=== PATIENT | female | born 1965 | race Hispanic/Latino ===

== ENCOUNTER 2019-03-13 18:49 | Emergency (ER) | payer MEDICAID ==
--- NOTE | 2019-03-13 19:29 | Event Note ---
ED Screening Note Date of service: 03/13/19 Time: 19:25 ED Screening Note: This is a 53 y.o. F. that presents to the ER with a ring stuck on left 3rd finger for 3 days. Patient reports poison vic rash and swelling to hands. Patient using benadryl and calamine with no improvement of symptoms. Patient went to Urgent Care and given steroids and antibiotics. This initial assessment/diagnostic orders/clinical plan/treatment(s) is/are subject to change based on patients health status, clinical progression and re- assessment by fellow clinical providers in the ED. Further treatment and workup at subsequent clinical providers discretion. Patient/guardian urged not to elope from the ED as their condition may be serious if not clinically assessed and managed. Initial orders include:
[2019-03-13] MEDS ORDERED: NORCO 5/325 PO ONE (20:26)
[2019-03-13] MEDS ORDERED: ANTIBIOTIC OINT TP ONE (20:27)
--- NOTE | 2019-03-13 20:32 | Emergency Department Report ---
HPI - General Chief Complaint: Extremity Injury, Upper Time Seen by Provider: 03/13/19 19:24 - HPI HPI: Room 6 The patient is a 53-year-old female presenting with a chief complaint of ring stuck on finger. The patient states she got exposed to poison vic across 4-5 days ago and patient states she developed swelling of her hands 2 days ago which made it difficult to get her ring off. Patient complained of pain initially went to urgent care facility for evaluation. The patient was sent to the ED to have the ring cut off. The ring was cut off by staff prior to my evaluation. Patient now just complains of soreness where the ring was. Location: [See above] Duration: [See above] Quality: [See above] Severity: [See above] Modifying factors: [see above] Context: [see above] Mode of transportation: [not driving] ED Past Medical Hx - Past Medical History Previous Medical History?: No - Surgical History Past Surgical History?: No - Family History Family history: no significant - Social History Smoking Status: Heavy Tobacco Smoker Substance Use Type: Alcohol (occasional) - Medications Home Medications: Home Medications Medication Instructions Recorded Confirmed Last Taken Type HYDROcodone/APAP 5-325 [[place] 1 each PO Q6HR PRN #20 tablet 05/05/15 Unknown Rx 5/325] Ibuprofen [Motrin] 600 mg PO Q8H PRN #30 tablet 05/05/15 Unknown Rx traMADol [Ultram] 50 mg PO Q6HR PRN #10 tablet 03/13/19 Unknown Rx ED Review of Systems ROS: Stated complaint: RING STUCK MIDDLE FINGER Other details as noted in HPI Constitutional: no symptoms reported Eyes: denies: eye pain ENT: denies: throat pain Respiratory: no symptoms reported Cardiovascular: denies: chest pain Endocrine: no symptoms reported Gastrointestinal: denies: abdominal pain Genitourinary: denies: dysuria Musculoskeletal: myalgia Skin: rash, lesions Physical Exam - Physical Exam Vital Signs: Vital Signs 03/13/19 19:25 Temperature 97.8 F Pulse Rate 79 Respiratory 18 Rate Blood Pressure 125/80 O2 Sat by Pulse 96 Oximetry Physical Exam: GENERAL: The patient is well-developed well-nourished female lying on stretcher not appearing to be in acute distress. [] HEENT: Normocephalic. Atraumatic. Extraocular motions are intact. Patient has moist mucous membranes. NECK: Supple. Trachea midline CHEST/LUNGS: There is no respiratory distress noted. HEART/CARDIOVASCULAR: Capillary refill less than 3 seconds 1 left ring finger SKIN: There is a rash overlying bilateral hands consistent with poison vic. The left ring finger has a ring of denuded skin where the ring used to be NEURO: The patient is awake, alert, and oriented. The patient is cooperative. The patient has normal speech MUSCULOSKELETAL: There is no evidence of acute injury. ED Course Vital Signs 03/13/19 19:25 Temperature 97.8 F Pulse Rate 79 Respiratory 18 Rate Blood Pressure 125/80 O2 Sat by Pulse 96 Oximetry ED Medical Decision Making - Differential Diagnosis trapped ring Critical care attestation.: If time is entered above; I have spent that time in minutes in the direct care of this critically ill patient, excluding procedure time. ED Disposition Clinical Impression: Abrasion of right ring finger Disposition: [id number] TO HOME OR SELFCARE Is pt being admited?: No Does the pt Need Aspirin: No Condition: Stable Instructions: Acute Wound Care (ED) Additional Instructions: Return to the emergency department immediately should you develop worsening symptoms, fever, inability to tolerate food or liquid or any other concerns. Prescriptions: traMADol [Ultram] 50 mg PO Q6HR PRN #10 tablet PRN Reason: Pain Referrals: PRIMARY CARE, [Referring] - 3-5 Days Time of Disposition: 20:36
[2019-03-13 21:28] VITALS: BP 119/65
== END 2019-03-13 21:28 | disposition home or self-care (01) ==
LOC: ED 18:49
DX: S60.414A Abrasion of right ring finger, initial encounter (principal); L23.7 Allergic contact dermatitis due to plants, except food; X58.XXXA Exposure to other specified factors, initial encounter; Y93.89 Activity, other specified; Y92.89 Other specified places as the place of occurrence of the external cause; Y99.8 Other external cause status
CPT/HCPCS: 99283

== ENCOUNTER 2020-04-15 10:50 | Emergency (ER) | payer MEDICAID ==
[2020-04-15 11:14] VITALS: BP 107/71
--- NOTE | 2020-04-15 12:55 | Emergency Department Report ---
ED ENT HPI - General Chief complaint: Eye Problems Stated complaint: EYE PAIN Time Seen by Provider: 04/15/20 12:49 Source: patient Mode of arrival: Ambulatory Limitations: No Limitations - History of Present Illness Initial comments: This is a pleasant 54-year-old female presents emerged department chief complaint of left-sided facial swelling that started 2 weeks ago resolved and started again last few days. She reports pain is a 7-8 out of 10. Pain is worse when she chews or palpates the side of the face. No radiating pain. She had a tooth extracted 1 month ago and did not take the antibiotics. Pain is similar. She denies associated fever, chills, night sweats, headache, dizziness, blurry vision, nausea, vomiting, diarrhea, chest pain, shortness of breath. MD complaint: tooth pain - Related Data Previous Rx's Medication Instructions Recorded Last Taken Type HYDROcodone/APAP 5-325 [[place] 1 each PO Q6HR PRN #20 tablet 05/05/15 Unknown Rx 5/325] Ibuprofen [Motrin] 600 mg PO Q8H PRN #30 tablet 05/05/15 Unknown Rx traMADoL [Ultram] 50 mg PO Q6HR PRN #10 tablet 03/13/19 Unknown Rx Clindamycin [Clindamycin CAP] 300 mg PO Q8H #21 cap 04/15/20 Unknown Rx traMADoL [Ultram 50 MG tab] 50 mg PO Q6HR PRN #8 tablet 04/15/20 Unknown Rx Allergies Allergy/AdvReac Type Severity Reaction Status Date / Time No Known Allergies Allergy Unverified 05/05/15 09:38 ED Dental HPI - General Chief complaint: Eye Problems Stated complaint: EYE PAIN Time Seen by Provider: 04/15/20 12:49 Source: patient Mode of arrival: Ambulatory Limitations: No Limitations - Related Data Previous Rx's Medication Instructions Recorded Last Taken Type HYDROcodone/APAP 5-325 [[place] 1 each PO Q6HR PRN #20 tablet 05/05/15 Unknown Rx 5/325] Ibuprofen [Motrin] 600 mg PO Q8H PRN #30 tablet 05/05/15 Unknown Rx traMADoL [Ultram] 50 mg PO Q6HR PRN #10 tablet 03/13/19 Unknown Rx Clindamycin [Clindamycin CAP] 300 mg PO Q8H #21 cap 04/15/20 Unknown Rx traMADoL [Ultram 50 MG tab] 50 mg PO Q6HR PRN #8 tablet 04/15/20 Unknown Rx Allergies Allergy/AdvReac Type Severity Reaction Status Date / Time No Known Allergies Allergy Unverified 05/05/15 09:38 ED Review of Systems ROS: Stated complaint: EYE PAIN Other details as noted in HPI Comment: All other systems reviewed and negative Constitutional: denies: chills, fever Eyes: denies: eye pain, eye discharge, vision change ENT: as per HPI, dental pain. denies: ear pain, throat pain Respiratory: denies: cough, shortness of breath, wheezing Cardiovascular: denies: chest pain, palpitations Endocrine: no symptoms reported Gastrointestinal: denies: abdominal pain, nausea, diarrhea Genitourinary: denies: urgency, dysuria, discharge Musculoskeletal: denies: back pain, joint swelling, arthralgia Skin: denies: rash, lesions Neurological: denies: headache, weakness, paresthesias Psychiatric: denies: anxiety, depression Hematological/Lymphatic: denies: easy bleeding, easy bruising ED Past Medical Hx - Past Medical History Previous Medical History?: No - Surgical History Past Surgical History?: No - Family History Family history: no significant - Social History Smoking Status: Former Smoker Substance Use Type: None - Medications Home Medications: Home Medications Medication Instructions Recorded Confirmed Last Taken Type HYDROcodone/APAP 5-325 [[place] 1 each PO Q6HR PRN #20 tablet 05/05/15 Unknown Rx 5/325] Ibuprofen [Motrin] 600 mg PO Q8H PRN #30 tablet 05/05/15 Unknown Rx traMADoL [Ultram] 50 mg PO Q6HR PRN #10 tablet 03/13/19 Unknown Rx Clindamycin [Clindamycin CAP] 300 mg PO Q8H #21 cap 04/15/20 Unknown Rx traMADoL [Ultram 50 MG tab] 50 mg PO Q6HR PRN #8 tablet 04/15/20 Unknown Rx ED Physical Exam - General Limitations: No Limitations General appearance: alert, in no apparent distress - Head Head exam: Present: atraumatic, normocephalic - Eye Eye exam: Present: normal appearance, PERRL, EOMI Pupils: Present: normal accommodation - ENT ENT exam: Present: normal exam, normal orophraynx, mucous membranes moist, other (Mild periapical edema to the left upper teeth with no obvious abscess seen. No peritonsillar bulging, retropharyngeal bulging or tongue elevation. No dysphonia or drooling. No trismus.) - Neck Neck exam: Present: normal inspection, full ROM. Absent: tenderness, meningismus - Respiratory Respiratory exam: Present: normal lung sounds bilaterally. Absent: respiratory distress - Cardiovascular Cardiovascular Exam: Present: regular rate, normal rhythm. Absent: systolic murmur, diastolic murmur, rubs, gallop - GI/Abdominal GI/Abdominal exam: Present: soft, normal bowel sounds - Extremities Exam Extremities exam: Present: normal inspection - Back Exam Back exam: Present: normal inspection - Neurological Exam Neurological exam: Present: alert, oriented X3 - Psychiatric Psychiatric exam: Present: normal affect, normal mood - Skin Skin exam: Present: warm, dry, intact, normal color. Absent: rash ED Course Vital Signs 04/15/20 11:10 Temperature 98.0 F Pulse Rate 90 Respiratory 16 Rate Blood Pressure 107/71 O2 Sat by Pulse 95 Oximetry ED Medical Decision Making - Medical Decision Making Patient presented emergency department chief complaint of dental pain. She has some signs of infection but no obvious signs of abscess. Did offer to do a needle aspiration however she politely declined. She had no periorbital edema, no pain with extraocular movements, no appreciable facial swelling making my suspicion for periorbital cellulitis or septal cellulitis low at this time. She was given instructions to return the emerge department the symptoms develop and she verbalized understanding. We will treat her symptoms and recommended follow-up with her dentist, return to emerge department any change or worsening symptoms. She verbalized understanding the diagnosis, treatment plan and follow-up instructions. - Differential Diagnosis dental abscess, dental infection, periorbital cellulitis Critical care attestation.: If time is entered above; I have spent that time in minutes in the direct care of this critically ill patient, excluding procedure time. ED Disposition Clinical Impression: Infected dental caries Disposition: TO HOME OR SELFCARE Is pt being admited?: No Condition: Stable Instructions: Dental Caries (ED) Prescriptions: Clindamycin [Clindamycin CAP] 300 mg PO Q8H #21 cap traMADoL [Ultram 50 MG tab] 50 mg PO Q6HR PRN #8 tablet PRN Reason: Pain Referrals: PRIMARY CARE, [Primary Care Provider] - 3-5 Days [facility] [place] [Provider Group] - 3-5 Days Time of Disposition: 12:54
== END 2020-04-15 13:03 | disposition home or self-care (01) ==
LOC: ED 10:50
DX: K02.9 Dental caries, unspecified (principal); Z87.891 Personal history of nicotine dependence; Z79.899 Other long term (current) drug therapy
CPT/HCPCS: 99282